=== PATIENT | male | born 1980 ===

== ENCOUNTER 2020-06-20 22:47 | Emergency (ER) | payer SELFPAY ==
[~2020-06-20] VITALS: Ht 180.3 cm; Wt 82.0 kg
--- NOTE | 2020-06-20 22:47 | NUR ---
special agent in charge: called lab for legal draw
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
[2020-06-21 00:06] VITALS: BP 146/75
== END 2020-06-21 00:09 | disposition home or self-care (01) ==
LOC: ED 22:57
DX: F10.120 Alcohol abuse with intoxication, uncomplicated (principal); V47.5XXA Car driver injured in collision with fixed or stationary object in traffic accident, initial encounter; Y93.89 Activity, other specified; Y92.89 Other specified places as the place of occurrence of the external cause; Y99.8 Other external cause status; Y90.0 Blood alcohol level of less than 20 mg/100 ml
CPT/HCPCS: 99283